=== PATIENT | female | born 1975 | race American Indian/Alaskan Native ===

== ENCOUNTER 2021-07-10 06:16 | Emergency (ER) | payer SELFPAY ==
[2021-07-10] MEDS ORDERED: MORPHINE 4 MG/1 ML INJ IV ONE (07:18)
[2021-07-10] MEDS ORDERED: cloNIDine 0.2 MG TAB PO ONE (07:18)
[2021-07-10] MEDS ORDERED: ONDANSETRON 4 MG/2 ML INJ IV ONE (07:18)
[2021-07-10] MEDS ORDERED: GABAPENTIN 300 MG CAP PO ONE (07:24)
--- NOTE | 2021-07-10 07:25 | Emergency Department Report ---
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 Pain initially started with pain with chewing. Now she currently has pain to the left side of her neck, shoulder, left upper and lower arm, has intermittent spasms and cramping to her left hand/fingers and feels like they get stuck at times. Patient denies fever, difficulty breathing, or swallowing. Patient denies any change in her left lower extremity weakness and states it is currently at baseline. No recent chest pain, nausea, vomiting, shortness of breath, diaphoresis. 2 months ago patient was provided amoxicillin by the dentist for a dental infection presenting as pain on the left side of her mouth. Patient states aspirin 81 mg daily She states she is compliant with her blood pressure medication with last dose was yesterday a.m. Amlodipine 10 mg daily Metoprolol 25 mg daily Clonidine 0.1 mg as needed - Related Data Home Medications Medication Instructions Recorded Confirmed Last Taken Lisinopril/Hydrochlorothiazide 1 tab PO QDAY 02/04/14 02/04/14 Unknown [Zestoretic 20-12.5 mg] Verapamil HCl mg PO QDAY 02/04/14 02/04/14 Unknown cloNIDine [Catapres] 0.1 mg PO QDAY 02/04/14 02/04/14 Unknown metFORMIN [Glucophage] 500 mg PO BID 02/04/14 02/04/14 Unknown Previous Rx's Medication Instructions Recorded Last Taken Type Sennosides/Docusate Sodium 1 each PO BID #26 tablet 02/04/14 Unknown Rx [Sennosides-Docusate Sodium Tab] Gabapentin 300 mg PO BID #60 cap 07/10/21 Unknown Rx HYDROcodone/APAP 5-325 [[place] 1 each PO Q6HR PRN #10 tablet 07/10/21 Unknown Rx 5/325] Allergies Allergy/AdvReac Type Severity Reaction Status Date / Time latex Allergy Unknown Verified 07/10/21 07:35 Latex, Natural Rubber Allergy Hives Unverified 07/10/21 07:35 naproxen Allergy Hives Verified 07/10/21 07:35 shrimp Allergy Hives Verified 07/10/21 07:35 ED Review of Systems ROS: Stated complaint: PAIN/WEAKNESS ON LT SIDE Other details as noted in HPI ED Past Medical Hx - Past Medical History Previous Medical History?: Yes Hx Hypertension: Yes Hx CVA: Yes (July 2019 with residual left-sided weakness) Hx Congestive Heart Failure: No Hx Diabetes: Yes Hx Headaches / Migraines: Yes Hx Asthma: Yes Hx COPD: No - Surgical History Past Surgical History?: Yes Additional Surgical History: Pelvic laparoscopy. Tonsillectomy - Social History Smoking Status: Never Smoker Substance Use Type: None - Medications Home Medications: Home Medications Medication Instructions Recorded Confirmed Last Taken Type Lisinopril/Hydrochlorothiazide 1 tab PO QDAY 02/04/14 02/04/14 Unknown History [Zestoretic 20-12.5 mg] Sennosides/Docusate Sodium 1 each PO BID #26 tablet 02/04/14 Unknown Rx [Sennosides-Docusate Sodium Tab] Verapamil HCl mg PO QDAY 02/04/14 02/04/14 Unknown History cloNIDine [Catapres] 0.1 mg PO QDAY 02/04/14 02/04/14 Unknown History metFORMIN [Glucophage] 500 mg PO BID 02/04/14 02/04/14 Unknown History Gabapentin 300 mg PO BID #60 cap 07/10/21 Unknown Rx HYDROcodone/APAP 5-325 [[place] 1 each PO Q6HR PRN #10 tablet 07/10/21 Unknown Rx 5/325] ED Physical Exam - General Limitations: No Limitations - Other Other exam information: General: No acute distress Head: Atraumatic Eyes: normal appearance ENT: Patient has tenderness palpation of the left mandibular gum area of eroded mandibular tooth. No gum swelling or apical abscess. Patient has pain to palpation of left side of face no significant swelling. Face symmetrical Neck: Normal appearance, no midline tenderness, tenderness to left trapezius and sternocleidomastoid muscle with pain with movement Chest: Clear to auscultation bilaterally CV: Regular rate and rhythm Abdomen: Soft, normal bowel sounds, nontender, nondistended, no rebound or guarding Back: Normal inspection Extremity: Tenderness to left shoulder and tenderness extending to upper arm, forearm, spasms to left fingers noted, warm to touch without cyanosis Neuro: Alert O x 3, no facial asymmetry, speech clear, [id number] function intact, limited movement of left arm secondary to pain. 3/5 left lower extremity strength at baseline as per patient. Psych: Appropriate behavior Skin: No rash ED Course Vital Signs 07/10/21 07/10/21 07/10/21 06:39 07:00 07:16 Temperature 99 F Pulse Rate 74 74 74 Respiratory 18 11 L 14 Rate Blood Pressure 215/105 214/111 214/111 Blood Pressure [Right] O2 Sat by Pulse 98 98 100 Oximetry 07/10/21 07/10/21 07/10/21 07:30 07:45 07:57 Temperature Pulse Rate 66 66 Respiratory 10 L Rate Blood Pressure 217/115 217/115 Blood Pressure [Right] O2 Sat by Pulse 98 100 Oximetry 07/10/21 07/10/21 07/10/21 08:00 08:12 08:13 Temperature Pulse Rate 66 66 Respiratory 11 L 12 Rate Blood Pressure 201/102 201/102 Blood Pressure [Right] O2 Sat by Pulse 100 Oximetry 07/10/21 07/10/21 07/10/21 08:16 08:27 08:30 Temperature Pulse Rate 73 96 H Respiratory 12 18 18 Rate Blood Pressure 201/102 201/114 Blood Pressure [Right] O2 Sat by Pulse 100 98 100 Oximetry 07/10/21 07/10/21 07/10/21 08:45 09:08 09:16 Temperature Pulse Rate 81 92 H 77 Respiratory 10 L 14 Rate Blood Pressure 201/114 201/114 201/114 Blood Pressure [Right] O2 Sat by Pulse Oximetry 07/10/21 07/10/21 07/10/21 09:30 09:46 10:00 Temperature Pulse Rate 69 70 68 Respiratory 9 L 8 L 8 L Rate Blood Pressure 201/114 201/114 201/114 Blood Pressure [Right] O2 Sat by Pulse Oximetry 07/10/21 07/10/21 07/10/21 10:16 10:30 10:31 Temperature Pulse Rate 67 65 67 Respiratory 8 L 9 L 9 L Rate Blood Pressure 201/114 133/79 Blood Pressure 133/79 [Right] O2 Sat by Pulse 96 96 Oximetry 07/10/21 07/10/2107/10/22 10:46 11:00 11:16 Temperature Pulse Rate 62 61 62 Respiratory 8 L 7 L 9 L Rate Blood Pressure 133/79 153/86 153/86 Blood Pressure [Right] O2 Sat by Pulse 100 100 100 Oximetry 07/10/21 07/10/21 07/10/21 11:30 11:46 12:00 Temperature Pulse Rate 62 62 63 Respiratory 8 L 9 L 8 L Rate Blood Pressure 142/80 142/80 141/80 Blood Pressure [Right] O2 Sat by Pulse 100 100 100 Oximetry 07/10/21 07/10/21 07/10/21 12:04 12:16 12:30 Temperature Pulse Rate 64 62 62 Respiratory 12 8 L 8 L Rate Blood Pressure 141/80 143/85 Blood Pressure 141/80 [Right] O2 Sat by Pulse 100 100 100 Oximetry 07/10/21 07/10/21 07/10/21 12:46 13:00 13:16 Temperature Pulse Rate 61 63 61 Respiratory 8 L 9 L 9 L Rate Blood Pressure 143/85 141/83 141/83 Blood Pressure [Right] O2 Sat by Pulse 100 100 100 Oximetry 07/10/21 07/10/21 13:30 13:46 Temperature Pulse Rate 60 67 Respiratory 9 L 10 L Rate Blood Pressure 138/79 138/79 Blood Pressure [Right] O2 Sat by Pulse 100 100 Oximetry - Reevaluation(s) Reevaluation #1: 07/10/21 10:54 After receiving a combination of p.o. and IV medication causing sedation. Patient is drowsy but easily arousable to voice. She states there is no reduction in her pain. 07/10/21 14:45 pt observed until awake and stable for d/c ED Medical Decision Making - Lab Data Result diagrams: 07/10/21 07:56 07/10/21 07:56 Lab Results 07/10/21 07/10/21 07/10/21 Range/Units 07:24 07:56 07:56 WBC 5.9 (4.5-11.0) K/mm3 RBC 5.07 H (3.65-5.03) M/mm3 Hgb 10.6 (10.1-14.3) gm/dl Hct 34.2 (30.3-42.9) % MCV 67 L (79-97) fl MCH 21 L (28-32) pg MCHC 31 (30-34) % RDW 18.9 H (13.2-15.2) % Plt Count 301 (140-440) K/mm3 Lymph % (Auto) 26.1 (13.4-35.0) % [place] % (Auto) 5.6 (0.0-7.3) % Eos % (Auto) 0.0 (0.0-4.3) % Baso % (Auto) 0.3 (0.0-1.8) % Lymph # (Auto) 1.5 (1.2-5.4) K/mm3 [place] # (Auto) 0.3 (0.0-0.8) K/mm3 Eos # (Auto) 0.0 (0.0-0.4) K/mm3 Baso # (Auto) 0.0 (0.0-0.1) K/mm3 Seg Neutrophils % 68.0 (40.0-70.0) % Seg Neutrophils # 4.0 (1.8-7.7) K/mm3 Sodium 138 (137-145) mmol/L Potassium 4.4 (3.6-5.0) mmol/L Chloride 99.7 (98-107) mmol/L Carbon Dioxide 27 (22-30) mmol/L Anion Gap 16 mmol/L BUN 11 (7-17) mg/dL Creatinine 0.8 (0.6-1.2) mg/dL Estimated GFR > 60 ml/min BUN/Creatinine Ratio 14 % Glucose 201 H (65-100) mg/dL POC Glucose 176 H (70-105) mg/dL Calcium 9.8 (8.4-10.2) mg/dL Magnesium 1.80 (1.7-2.3) mg/dL Total Bilirubin 0.30 (0.1-1.2) mg/dL AST 16 (5-40) units/L ALT 12 (7-56) units/L Alkaline Phosphatase 77 (35-129) units/L Troponin T < 0.010 (0.00-0.029) ng/mL Total Protein 7.1 (6.3-8.2) g/dL Albumin 4.1 (3.9-5) g/dL Albumin/Globulin Ratio 1.4 % - EKG Data -: EKG Interpreted by [facility] EKG shows normal: sinus rhythm, ST-T waves (no stemi) Rate: normal - Radiology Data Radiology results: report reviewed the following imaging studies were reviewed (no acute findings) ct head ct neck ct facial bones - Medical Decision Making 46-year-old female comes into the hospital with 2 days of left-sided facial pain, gum pain, head pain, and left arm pain. Differential includes dental disease, trigeminal neuralgia, neuropathy, radicular pain, and infection. No signs of infection on exam and patient does not present with fever or leukocytosis. CT of the head, face, and neck were performed without contrast due to history of allergy and the fact that patient had pruritus after receiving morphine prior to CT scan. These imaging modalities did not reveal any significant abnormality or cause of patient's symptoms. Labs unremarkable. BP improved after clonidine. Patient will be treated for neuropathic related pain secondary to possible neuropathy and trigeminal neuralgia. Gabapentin will be continued upon discharge with [place] and neurology outpatient follow-up - Differential Diagnosis Dental/facial infection, radiculopathy/neuropathy, muscle spasm, infection Critical Care Time: No Critical care attestation.: If time is entered above; I have spent that time in minutes in the direct care of this critically ill patient, excluding procedure time. ED Disposition Clinical Impression: Trigeminal neuralgia of left side of face, Arm paresthesia, left, Diabetes, History of CVA with residual deficit Disposition: 01 HOME / SELF CARE / HOMELESS Is pt being admited?: No Does the pt Need Aspirin: No Condition: Stable Instructions: Diabetes Mellitus Type 2 in Adults (ED), Trigeminal Neuralgia, Paresthesia, Ixre-co-Jsra Additional Instructions: Take the medication as prescribed. Follow-up with your doctor or doctor/clinic provided. Return if symptoms worsen as indicated by your discharge instructions. Prescriptions: Gabapentin 300 mg PO BID #60 cap HYDROcodone/APAP 5-325 [[place] 5/325] 1 each PO Q6HR PRN #10 tablet PRN Reason: Pain Referrals: PRIMARY CARE, [Primary Care Provider] - 3-5 Days PABLO JONES MD [Staff Physician] - 3-5 Days (Neurologist) - Assessment Assessment Interval: Baseline - Level of Consciousness 1a. Level of Consciousness: alert/keenly responsive - LOC Questions 1b. LOC Questions: answers both correctly - LOC Command 1c. LOC Commands: performs tasks correctly - Best Gaze 2. Best Gaze: normal - Visual 3. Visual: no visual loss - Facial Palsy 4. Facial Palsy: normal symmetrical movement - Motor Arm 5a. Motor Arm Left: no drift 5b. Motor Arm Right: no drift - Motor Leg 6a. Motor Leg Left: drift 6b. Motor Leg Right: some gravity effort - Limb Ataxia 7. Limb Ataxia: absent - Sensory 8. Sensory: mild/moderate sensory loss - Best Language 9. Best Language: no aphasia - Dysarthria 10. Dysarthria: normal - Extinction and Inattention 11. Extinction/Inattention: no abnormality - Scoring Total Score: 4 Stroke Severity: Minor Stroke
[2021-07-10] MEDS ORDERED: methylPREDNISolone Sod Succinate 125 MG/2 ML INJ IV ONE (07:32)
[2021-07-10] MEDS ORDERED: diphenhydrAMINE 50 MG/ML VIAL IV ONE (07:32)
[2021-07-10 08:36] LABS: Basophils % (Auto) 0.3 % (0.0-1.8); Hematocrit 34.2 % (30.3-42.9); Hemoglobin 10.6 gm/dl (10.1-14.3); Lymphocytes # (Auto) 1.5 K/mm3 (1.2-5.4); Lymphocytes % (Auto) 26.1 % (13.4-35.0); Mean Corpuscular HGB Conc 31 % (30-34); Monocytes # (Auto) 0.3 K/mm3 (0.0-0.8); Monocytes % (Auto) 5.6 % (0.0-7.3); Platelet Count 301 K/mm3 (140-440); Red Blood Count 5.07 M/mm3 (3.65-5.03); Red Cell Distribution Width 18.9 % (13.2-15.2)
[2021-07-10 08:44] LABS: Mean Corpuscular Volume 67 fl (79-97)
[2021-07-10 09:00] LABS: Alanine Aminotransferase 12 units/L (7-56); Albumin 4.1 g/dL (3.9-5); BUN/Creatinine Ratio 14; Blood Urea Nitrogen 11 mg/dL (7-17); Calcium 9.8 mg/dL (8.4-10.2); Hemolysis Index 2
--- NOTE | 2021-07-10 09:20 | Cat Scan Report ---
CT head/brain wo con INDICATION / CLINICAL INFORMATION: 46 years Female; headache, left face pain. TECHNIQUE: Routine CT head without contrast. All CT scans at this location are performed using CT dos e reduction for ALARA by means of automated exposure control. COMPARISON: 02/03/2014 FINDINGS: BRAIN / INTRACRANIAL CONTENTS: Old, small branch MCA infarct seen in the middle/inferior frontal gyra l region on the right. Very small, old branch MCA infarct is suggested in the inferior parietal lobul e on the right. Small lacunar infarcts are seen in the head of the caudate regions bilaterally, as we ll as the lateral right thalamus. Old branch PICA infarct seen on the left. Otherwise, no acute hemorrhage, mass effect, midline shift, hydrocephalus, or acute, large territori al infarct. Mild, diffuse cerebral atrophy. There are mild to moderate areas of decreased attenuation in the white matter of the cerebral hemisph eres, as well as the gangliocapsular regions. These are nonspecific findings and may be related to mi croangiopathy (hypertension, diabetes, atherosclerosis), given the patient's age. CRANIOCERVICAL JUNCTION: No significant abnormality. ORBITS: Would question prior injection for retinal detachment versus orbital trauma with hemorrhage i n the vitreous of the right globe. This finding is new from prior. Please clinically correlate. Intra orbital structures are otherwise grossly normal. SINUSES / MASTOIDS: Visualized paranasal sinuses and mastoid air cells are essentially clear. ADDITIONAL FINDINGS: None. IMPRESSION: 1. No focal mass, hemorrhage, hydrocephalus, or acute, large territorial infarct. Follow-up with diff usion imaging by MRI, as clinically warranted. Signer Name: Kingsley Camara MD, III Signed: 07/10/2021 9:16 AM Workstation Name: [email or web address]
--- NOTE | 2021-07-10 09:27 | Cat Scan Report ---
CT facial bones wo con INDICATION / CLINICAL INFORMATION: 46 years Female; headache, left face pain, left mandibular gum pain wo contrast allergic. TECHNIQUE: Thin cut axial images obtained. Sagittal and coronal reconstructions performed. All CT scans at this location are performed using CT dose reduction for ALARA by means of automated exposure control. COMPARISON: None available. FINDINGS: Minimal mucosal thickening in the ethmoids. Mucosal thickening seen in the inferior right maxillary a ntrum along with mucous retention cyst/polyp. Small mucous retention cyst/polyp seen in the left maxi llary antrum as well. Minimal periodontal disease seen with most prevalent findings noted along the molars of the right max illary alveolar ridge. Orbits are grossly normal. No signs of fluid collection seen to suggest abscess. No definitive signs of cellulitis. High attenuation material seen in the vitreous of the right globe-would question prior injection of t he vitreous for retinal detachment purposes or perhaps prior trauma. Please clinically correlate. Mild to moderate temporomandibular joint disease seen on the right. IMPRESSION: 1. No definitive cause for patient's symptomatology seen. Would trigeminal neuralgia be a considerati on 2. Changes in the right orbit, as described above. Signer Name: Kingsley Camara MD, III Signed: 07/10/2021 9:22 AM Workstation Name: [email or web address]
--- NOTE | 2021-07-10 09:50 | Cat Scan Report ---
CT neck wo con INDICATION / CLINICAL INFORMATION: 46 years Female; headache, left neck pain radiating to arm wo contrast allergy. TECHNIQUE: Contiguous thin cut axial images obtained through the neck. Sagittal and coronal reconstructions perf ormed by the technologist. All CT scans at this location are performed using CT dose reduction for AL ABEL by means of automated exposure control. COMPARISON: None available. FINDINGS: MUCOSAL SPACE: The nasopharynx, oropharynx and vallecula, oral cavity and floor of mouth, hypopharynx , and larynx are grossly normal. LYMPH NODES: No significant adenopathy appreciated. SALIVARY GLANDS: Parotid, submandibular, and visualized sublingual glands are within normal limits. T here is no evidence of sialolith. THYROID GLAND: Prominent thyroid gland noted with no definitive signs of dominant nodule. PARANASAL SINUSES: There may be minimal mucosal thickening in the mastoids on the right. SPINE: No significant abnormality of the cervical spine appreciated. Mild kyphosis suggested, althoug h findings may be related to patient positioning. VASCULAR STRUCTURES: Vascular structures are grossly normal in appearance. ADDITIONAL FINDINGS: High attenuation material seen in the vitreous of the right globe, which could b e related to prior trauma or perhaps injection for retinal detachment. Please clinically correlate. IMPRESSION: 1. No cause for patient's symptomatology appreciated. Signer Name: Kingsley Camara MD, III Signed: 07/10/2021 9:45 AM Workstation Name: [email or web address]
[2021-07-10 15:34] VITALS: BP 168/82
--- NOTE | 2021-07-11 09:01 | Electrocardiograph Report ---
[facility] Test Date: 2021-07-10 Test Time: 06:43:02 Pat Name: GERARD WRIGHT Department: Room: Gender: F Driver Examiner: JACK : 1975 Requested By: JALEEL PEDRO Order Number: [id number] Reading MD: George Velázquez Measurements Intervals [place] Rate: 75 P: 74 WV: 170 QRS: 84 QRSD: 102 T: -84 QT: 415 QTc: 465 Interpretive Statements Sinus rhythm Right atrial enlargement PRWP Nonspecific T abnormalities, lateral leads No previous ECG available for comparison Electronically Signed On 07-11-2021 9:01:24 EDT by George Velázquez
== END 2021-07-10 16:16 | disposition home or self-care (01) ==
LOC: ED 06:16
DX: G50.0 Trigeminal neuralgia (principal); I10 Essential (primary) hypertension; J45.909 Unspecified asthma, uncomplicated; G43.909 Migraine, unspecified, not intractable, without status migrainosus; E11.9 Type 2 diabetes mellitus without complications; Z98.890 Other specified postprocedural states; Z90.89 Acquired absence of other organs; Z79.899 Other long term (current) drug therapy; Z88.8 Allergy status to other drugs, medicaments and biological substances; Z91.013 Allergy to seafood; Z91.018 Allergy to other foods
CPT/HCPCS: 36415; 70450; 70486; 70490; 80053; 82962; 83735; 84484; 85025; 93005; 96374; 96375; 99285; J1200; J2270; J2405; J2930

== ENCOUNTER 2021-07-12 20:15 | Emergency (ER) | payer SELFPAY ==
[2021-07-12 20:36] VITALS: BP 189/105
[2021-07-12] MEDS: HYDROcodone/ACETAMINOPHEN 5-325 MG TAB PO ONE (23:20)
[2021-07-12] MEDS: ONDANSETRON 4 MG/2 ML INJ IV ONE (23:21)
[2021-07-12] MEDS: dexAMETHasone 20 MG/5 ML VIAL IV ONE (23:21)
[2021-07-12 23:45] LABS: Basophils # (Auto) 0.1 K/mm3 (0.0-0.1); Basophils % (Auto) 0.9 % (0.0-1.8); Hematocrit 37.5 % (30.3-42.9); Hemoglobin 11.7 gm/dl (10.1-14.3); Lymphocytes # (Auto) 2.1 K/mm3 (1.2-5.4); Lymphocytes % (Auto) 33.9 % (13.4-35.0); Mean Corpuscular HGB Conc 31 % (30-34); Monocytes # (Auto) 0.4 K/mm3 (0.0-0.8); Monocytes % (Auto) 6.2 % (0.0-7.3); Platelet Count 331 K/mm3 (140-440); Red Blood Count 5.54 M/mm3 (3.65-5.03); Red Cell Distribution Width 19.2 % (13.2-15.2)
[2021-07-12 23:46] LABS: Mean Corpuscular Volume 68 fl (79-97)
[2021-07-12 23:57] LABS: Alanine Aminotransferase 11 units/L (7-56); Albumin 3.8 g/dL (3.9-5); BUN/Creatinine Ratio 15; Blood Urea Nitrogen 12 mg/dL (7-17); Calcium 9.1 mg/dL (8.4-10.2); Hemolysis Index 12
--- NOTE | 2021-07-13 00:58 | Cat Scan Report ---
CT head/brain wo con INDICATION: Headache, vision changes. TECHNIQUE: All CT scans at this location are performed using CT dose reduction for ALARA by means of automated e xposure control. COMPARISON: Head CT on 07/10/2021 FINDINGS: There is no acute hemorrhage, brain edema, or hydrocephalus. There are stable multifocal lacunar infa rcts in the basal ganglia. There is a stable chronic infarct in the right inferior frontal gyrus. The included paranasal sinuses are clear. IMPRESSION: 1. No acute findings or adverse change from the prior exam. Signer Name: Jason Gibbs MD Signed: 07/13/2021 12:54 AM Workstation Name: [id number]
--- NOTE | 2021-07-13 04:36 | Emergency Department Report ---
ED General Adult HPI - General Chief complaint: Extremity Injury, Upper Stated complaint: FACIAL SWELLING/PAINFUL Source: patient Mode of arrival: Wheelchair Limitations: Physical Limitation - History of Present Illness Initial comments: Patient is a 46-year-old -[place] female with a history of hypertension, CVA with residual left arm weakness, asthma, [id number] diabetes, trigeminal neuralgia and migraine headaches who presents to the ED with complaint of acute onset persistent left facial pain that radiates to the left temporal scalp with headache, left lateral neck pain that radiates to the left shoulder and fingers with tingling sensation for the last 2 week. Patient stated that she has previously been treated for the same but that her symptoms have worsened in the last 4 days. Patient denies dizziness, syncope, fall, traumatic injury, chest pain or shortness of breath, abdominal pain, nausea and vomiting, change in vision or speech changes, diarrhea, dysuria, urinary frequency and urgency or back pain. MD Complaint: Left TMJ pain, left lateral neck pain, left arm tingling sensation -: Sudden, week(s) (2) Location: head, face, upper extremity (Left arm and shoulder pain) Radiation: extremity (Left arm and shoulder), distal (Left arm) Severity scale (0 -10): 8 Quality: burning, aching, sharp Consistency: constant Improves with: none Worsens with: none Associated Symptoms: denies other symptoms, headaches. denies: confusion, cough, diaphoresis, fever/chills, loss of appetite, malaise, nausea/vomiting, rash, seizure, shortness of breath, syncope, weakness Treatments Prior to Arrival: none - Related Data Home Medications Medication Instructions Recorded Confirmed Last Taken Lisinopril/Hydrochlorothiazide 1 tab PO QDAY 02/04/14 02/04/14 Unknown [Zestoretic 20-12.5 mg] Verapamil HCl mg PO QDAY 02/04/14 02/04/14 Unknown cloNIDine [Catapres] 0.1 mg PO QDAY 02/04/14 02/04/14 Unknown metFORMIN [Glucophage] 500 mg PO BID 02/04/14 02/04/14 Unknown Previous Rx's Medication Instructions Recorded Last Taken Type Sennosides/Docusate Sodium 1 each PO BID #26 tablet 02/04/14 Unknown Rx [Sennosides-Docusate Sodium Tab] HYDROcodone/APAP 5-325 [[place] 1 each PO Q6HR PRN #10 tablet 07/10/21 Unknown Rx 5/325] Acetaminophen [Tylenol] 500 mg PO Q6HR PRN #60 tablet 07/13/21 Unknown Rx Gabapentin 300 mg PO BID #60 cap 07/13/21 Unknown Rx predniSONE [Deltasone] 60 mg PO QDAY #15 tab 07/13/21 Unknown Rx Allergies Allergy/AdvReac Type Severity Reaction Status Date / Time latex Allergy Unknown Verified 07/10/21 07:35 Latex, Natural Rubber Allergy Hives Unverified 07/10/21 07:35 naproxen Allergy Hives Verified 07/10/21 07:35 shrimp Allergy Hives Verified 07/10/21 07:35 ED Review of Systems ROS: Stated complaint: FACIAL SWELLING/PAINFUL Other details as noted in HPI Constitutional: denies: chills, fever Eyes: other (Left TMJ and facial pain). denies: eye pain, eye discharge, vision change ENT: denies: ear pain, throat pain Respiratory: denies: cough, shortness of breath, wheezing Cardiovascular: denies: chest pain, palpitations Endocrine: no symptoms reported Gastrointestinal: denies: abdominal pain, nausea, diarrhea Genitourinary: denies: urgency, dysuria, discharge Musculoskeletal: arthralgia (Left lateral neck and shoulder pain). denies: back pain, joint swelling Skin: denies: rash, lesions Neurological: headache (Left temporal headache). denies: weakness, paresthesias Psychiatric: denies: anxiety, depression Hematological/Lymphatic: denies: easy bleeding, easy bruising ED Past Medical Hx - Past Medical History Previous Medical History?: Yes Hx Hypertension: Yes Hx CVA: Yes (July 2019 with residual left-sided weakness) Hx Congestive Heart Failure: No Hx Diabetes: Yes Hx Headaches / Migraines: Yes Hx Asthma: Yes Hx COPD: No - Surgical History Past Surgical History?: Yes Additional Surgical History: Pelvic laparoscopy. Tonsillectomy - Social History Smoking Status: Never Smoker Substance Use Type: None - Medications Home Medications: Home Medications Medication Instructions Recorded Confirmed Last Taken Type Lisinopril/Hydrochlorothiazide 1 tab PO QDAY 02/04/14 02/04/14 Unknown History [Zestoretic 20-12.5 mg] Sennosides/Docusate Sodium 1 each PO BID #26 tablet 02/04/14 Unknown Rx [Sennosides-Docusate Sodium Tab] Verapamil HCl mg PO QDAY 02/04/14 02/04/14 Unknown History cloNIDine [Catapres] 0.1 mg PO QDAY 02/04/14 02/04/14 Unknown History metFORMIN [Glucophage] 500 mg PO BID 02/04/14 02/04/14 Unknown History HYDROcodone/APAP 5-325 [[place] 1 each PO Q6HR PRN #10 tablet 07/10/21 Unknown Rx 5/325] Acetaminophen [Tylenol] 500 mg PO Q6HR PRN #60 tablet 07/13/21 Unknown Rx Gabapentin 300 mg PO BID #60 cap 07/13/21 Unknown Rx predniSONE [Deltasone] 60 mg PO QDAY #15 tab 07/13/21 Unknown Rx ED Physical Exam - General Limitations: Physical Limitation General appearance: alert, in no apparent distress - Head Head exam: Present: atraumatic, normocephalic, normal inspection - Eye Eye exam: Present: normal appearance, PERRL, EOMI Pupils: Present: normal accommodation - ENT ENT exam: Present: normal exam, normal orophraynx, mucous membranes moist, TM's normal bilaterally, normal external ear exam, other (Palpable left TMJ tenderness) - Neck Neck exam: Present: normal inspection, tenderness (Palpable left cervical paraspinal musculoskeletal tenderness), full ROM. Absent: lymphadenopathy, thyromegaly - Respiratory Respiratory exam: Present: normal lung sounds bilaterally. Absent: respiratory distress, wheezes, rales, chest wall tenderness, accessory muscle use, decreased breath sounds - Cardiovascular Cardiovascular Exam: Present: regular rate, normal rhythm, normal heart sounds. Absent: tachycardia, systolic murmur, diastolic murmur, rubs, gallop - GI/Abdominal GI/Abdominal exam: Present: soft, normal bowel sounds. Absent: tenderness, gua rding, rebound, hyperactive bowel sounds, hypoactive bowel sounds, organomegaly - Extremities Exam Extremities exam: Present: normal inspection, full ROM, tenderness (Palpable left lateral sternocleidomastoid and trapezius muscle tenderness; left shoulder tenderness), normal capillary refill - Back Exam Back exam: Present: normal inspection, full ROM. Absent: tenderness, CVA tenderness (R), CVA tenderness (L), muscle spasm, paraspinal tenderness, vertebral tenderness - Neurological Exam Neurological exam: Present: alert, oriented X3, CN II-XII intact, normal gait, reflexes normal - Psychiatric Psychiatric exam: Present: normal affect, normal mood - Skin Skin exam: Present: warm, dry, intact, normal color. Absent: rash ED Course Vital Signs 07/12/21 07/12/21 20:34 21:09 Temperature 98.3 F 98.9 F Pulse Rate 85 Respiratory 18 Rate Blood Pressure 189/105 O2 Sat by Pulse 100 Oximetry ED Medical Decision Making - Lab Data Result diagrams: 07/12/21 23:03 07/12/21 23:03 - Radiology Data Radiology results: report reviewed, image reviewed [facility] [address] [place] [address] Cat Scan Report Signed Patient: GERARD WRIGHT MR# : [id number] : 1975 Acct:[id number] Age/Sex: 46 / F ADM Date: 07/12/21 Loc: ED Attending Dr: Ordering Physician: SEB VILLALTA Date of Service: 07/12/21 Procedure(s): CT head/brain wo con Accession Number(s): [id number] cc: SEB VILLALTA CT head/brain wo con INDICATION: Headache, vision changes. TECHNIQUE: All CT scans at this location are performed using CT dose reduction for ALARA by means of automated exposure control. COMPARISON: Head CT on 07/10/2021 FINDINGS: There is no acute hemorrhage, brain edema, or hydrocephalus. There are stable multifocal lacunar infarcts in the basal ganglia. There is a stable chronic infarct in the right inferior frontal gyrus. The included paranasal sinuses are clear. IMPRESSION: 1. No acute findings or adverse change from the prior exam. Signer Name: Jason Gibbs MD Signed: 07/13/2021 12:54 AM Workstation Name: [id number] Transcribed By: GENET Dictated By: Jason Gibbs MD Electronically Authenticated By: Jason Gibbs MD Signed Date/Time: 07/13/2153 DD/ TD/TT: - Medical Decision Making This is a 46-year-old -[place] female with a history of hypertension, CVA with residual left arm weakness, asthma, vyp-[id number]-[id number] diabetes, trigeminal neuralgia and migraine headaches who presents to the ED with complaint of acute onset persistent left facial pain that radiates to the left temporal scalp with headache, left lateral neck pain that radiates to the left shoulder and fingers with tingling sensation for the last 2 week. Patient stated that she has previously been treated for the same but that her symptoms have worsened in the last 4 days. In the ED, patient is alert and oriented x3 and is not in any distress. Patient was treated in the ED for pain. Lab test results were reviewed and are all nonactionable. Head CT scan without contrast showed no acute intracranial abnormalities or hemorrhage. On reevaluation, patient simulated in the ED, patient felt better and was discharged home on medications. Patient advised return to the ED immediately if symptoms get worse, otherwise follow-up with her primary care physician in 7 to 10 days for reevaluation. - Differential Diagnosis TMJ neuralgia; tension headache; cervical radiculopathy; muscle strain Critical care attestation.: If time is entered above; I have spent that time in minutes in the direct care of this critically ill patient, excluding procedure time. ED Disposition Clinical Impression: Trigeminal neuralgia of left side of face, Cervical radiculopathy, Strain of muscle, fascia and tendon at neck level, initial encounter Disposition: 01 HOME / SELF CARE / HOMELESS Is pt being admited?: No Does the pt Need Aspirin: No Condition: Stable Instructions: Neuropathic Pain, Cervical Strain and Sprain Rehab-SportsMed, Cervical Radiculopathy, [id number], Trigeminal Neuralgia Additional Instructions: All lab test results were reviewed and are all nonactionable. Head CT scan without contrast showed no acute intracranial abnormalities or hemorrhage. It is unchanged from previous head CT scan procedures as per the report. Therefore your left facial pain is due to trigeminal neuralgia and left lateral neck pain is due to cervical radiculopathy affecting the left arm. Therefore take medications with food, drink plenty fluids and follow-up with your primary care physician in 7 to 10 days for reevaluation. Return to the ED immediately if symptoms get worse. Prescriptions: Acetaminophen [Tylenol] 500 mg PO Q6HR PRN #60 tablet PRN Reason: Pain , Severe (7-10) predniSONE [Deltasone] 60 mg PO QDAY #15 tab Gabapentin 300 mg PO BID #60 cap Referrals: KIMBERLEY RICHEY MD [Primary Care Provider] - 3-5 Days Time of Disposition: 04:37 Print Language: RUSSIAN
== END 2021-07-13 05:24 | disposition home or self-care (01) ==
LOC: ED 20:15
DX: S16.1XXA Strain of muscle, fascia and tendon at neck level, initial encounter (principal); G50.0 Trigeminal neuralgia; M54.12 Radiculopathy, cervical region; I10 Essential (primary) hypertension; G43.909 Migraine, unspecified, not intractable, without status migrainosus; E11.9 Type 2 diabetes mellitus without complications; J45.909 Unspecified asthma, uncomplicated; Z90.89 Acquired absence of other organs; Z91.040 Latex allergy status; Z91.013 Allergy to seafood; Z88.8 Allergy status to other drugs, medicaments and biological substances; Z79.899 Other long term (current) drug therapy
CPT/HCPCS: 36415; 70450; 80053; 85025; 96374; 96375; 99284; J1100; J2405